=== PATIENT | male | born 1970 | race Caucasian/White ===

== ENCOUNTER 2018-01-08 12:22 | Emergency (ER) | payer BC ==
[~2018-01-08] VITALS: Ht 182.9 cm; Wt 96.2 kg
[2018-01-08 12:30] VITALS: BP_SYST 152
[2018-01-08] MEDS ORDERED: NACL 0.9% 1,000 ML IV ONE (13:15)
[2018-01-08 13:35] LABS: BILIRUBIN,URINE NEGATIVE (NEGATIVE); BLOOD, URINE NEGATIVE (NEGATIVE); CLARITY/URINE CLEAR (CLEAR); COLOR,URINE YELLOW (YELLOW); GLUCOSE,URINE NEGATIVE (NEGATIVE); KETONES,URINE NEGATIVE (NEGATIVE); LEUKOCYTE ESTERASE ,URINE NEGATIVE (NEGATIVE); NITRITE, URINE NEGATIVE (NEGATIVE); PROTEIN URINE 1+ (NEGATIVE); UROBILINOGEN,URINE 0.2 (0.2-1.0)
[2018-01-08 13:45] LABS: BACTERIA,URINE RARE /HPF (None Seen); MUCUS,URINE 1+ /LPF (None Seen); RBC,URINE 0-3 /HPF (0-3); WBC,URINE 0-3 /HPF (0-3)
[2018-01-08 13:45] LABS: CALCIUM 10.6 mg/dL (8.4-11.0); CREATININE 0.96 mg/dL (0.55-1.30); POTASSIUM 3.4 mmol/L (3.5-5.1)
[2018-01-08 13:46] LABS: BASOPHILS # (AUTO) 0.1 K/uL (0.0-0.2); BASOPHILS % (AUTO) 0.8 % (0.0-2.0); HEMATOCRIT 49.3 % (36-54); HEMOGLOBIN 16.9 g/dL (14.0-18.0); LYMPHOCYTES # (AUTO) 0.8 K/uL (1.0-5.5); LYMPHOCYTES % (AUTO) 6.6 % (20.5-51.5); MEAN CORPUSCULAR HEMOGLOBIN 33 pg (27-31); MEAN CORPUSCULAR HGB CONC 34 % (32-36); MEAN CORPUSCULAR VOLUME 95 fL (79.0-98.0); MONOCYTES # (AUTO) 0.8 K/uL (0.0-1.0); MONOCYTES % (AUTO) 6.7 % (1.7-9.3); NEUTROPHILS # (AUTO) 10.8 K/uL (1.8-7.7); NEUTROPHILS % (AUTO) 85.9 % (40.0-70.0); PLATELET COUNT (AUTO) 260 K/uL (130-430); RED BLOOD CELL COUNT(AUTO) 5.21 MIL/uL (4.2-6.2); RED CELL DISTRIBUTION WIDTH 12.1 % (9.0-15.0); WHITE BLOOD COUNT (AUTO) 12.5 K/uL (4.8-10.8)
[2018-01-08 13:53] LABS: ALBUMIN 4.6 g/dL (3.4-4.8); TOTAL BILIRUBIN 1.1 mg/dL (0.0-1.0)
[2018-01-08] MEDS ORDERED: ONDANSETRON HCL 4 MG/5 ML UDC PO ONE (14:15)
[2018-01-08] MEDS ORDERED: MORPHINE 4 MG/ML INJ. SYRINGE IVP ONE (14:15)
[2018-01-08 14:50] VITALS: BP_SYST 148
== END 2018-01-08 14:50 | disposition home or self-care (01) ==
LOC: SED 12:22
DX: K51.90 Ulcerative colitis, unspecified, without complications (principal); R03.0 Elevated blood-pressure reading, without diagnosis of hypertension; K59.00 Constipation, unspecified; Z90.49 Acquired absence of other specified parts of digestive tract
CPT/HCPCS: 36415; 74150; 80053; 81000; 83690; 85025; 96361; 96374; 99285; J2270; J7030; Q0162

== ENCOUNTER 2018-02-25 18:10 | Inpatient (IN) | payer BC ==
[~2018-02-25] VITALS: Ht 182.9 cm; Wt 95.8 kg
[2018-02-25 18:23] VITALS: BP_SYST 132
[2018-02-25 19:37] LABS: CALCIUM 9.4 mg/dL (8.4-11.0); CREATININE 0.8 mg/dL (0.55-1.30); POTASSIUM 3.6 mmol/L (3.5-5.1)
[2018-02-25 19:38] LABS: BASOPHILS # (AUTO) 0.1 K/uL (0.0-0.2); BASOPHILS % (AUTO) 1.3 % (0.0-2.0); EOSINOPHILS # (AUTO) 0.1 K/uL (0.0-0.4); EOSINOPHILS % (AUTO) 1.2 % (0.0-4.0); HEMATOCRIT 41.2 % (36-54); LYMPHOCYTES # (AUTO) 0.7 K/uL (1.0-5.5); LYMPHOCYTES % (AUTO) 16.9 % (20.5-51.5); MEAN CORPUSCULAR HEMOGLOBIN 32 pg (27-31); MEAN CORPUSCULAR HGB CONC 34 % (32-36); MEAN CORPUSCULAR VOLUME 95 fL (79.0-98.0); MONOCYTES # (AUTO) 0.7 K/uL (0.0-1.0); MONOCYTES % (AUTO) 16.4 % (1.7-9.3); NEUTROPHILS # (AUTO) 2.8 K/uL (1.8-7.7); NEUTROPHILS % (AUTO) 64.2 % (40.0-70.0); PLATELET COUNT (AUTO) 338 K/uL (130-430); RED BLOOD CELL COUNT(AUTO) 4.34 MIL/uL (4.2-6.2); RED CELL DISTRIBUTION WIDTH 13.6 % (9.0-15.0); WHITE BLOOD COUNT (AUTO) 4.4 K/uL (4.8-10.8)
[2018-02-25 19:41] LABS: ALBUMIN 3.5 g/dL (3.4-4.8)
[2018-02-25] MEDS ORDERED: NACL 0.9% 1,000 ML IV ONE (20:15)
[2018-02-25] MEDS ORDERED: IOHEXOL 100 ML IV ONE (20:38)
[2018-02-25] MEDS ORDERED: MESA0.37 PO (21:20)
[2018-02-25] MEDS ORDERED: PIPERACILLIN/TAZO 3.375 GM in NS 50 ML IV ONE (21:30)
[2018-02-25] MEDS ORDERED: PIPERACILLIN/TAZOBACTAM 3.375 GM/VIAL (ZOSYN) IV ONE (21:41)
[2018-02-25 22:56] VITALS: BP_SYST 123
[2018-02-25 23:30] VITALS: BP_SYST 116
[2018-02-26] MEDS ORDERED: ONDANSETRON HCL 4 MG/2 ML VIAL IVP PRN (03:45)
[2018-02-26] MEDS: D5LR 1,000 ML IV SCH ×2 (04:22→15:55)
[2018-02-26] MEDS ORDERED: AMPICILLIN SODIUM/SULBACTAM NA 1.5 GM VIAL ONE (05:51)
[2018-02-26] MEDS: AMPICILLIN SODIUM/SULBACTAM NA 1.5 GM in NS 50 ML IV SCH ×3 (06:07→17:54)
[2018-02-26 06:47] LABS: BASOPHILS # (AUTO) 0.1 K/uL (0.0-0.2); BASOPHILS % (AUTO) 1.6 % (0.0-2.0); EOSINOPHILS # (AUTO) 0.1 K/uL (0.0-0.4); EOSINOPHILS % (AUTO) 1.5 % (0.0-4.0); HEMATOCRIT 38.2 % (36-54); HEMOGLOBIN 13.3 g/dL (14.0-18.0); LYMPHOCYTES # (AUTO) 0.9 K/uL (1.0-5.5); LYMPHOCYTES % (AUTO) 19.4 % (20.5-51.5); MEAN CORPUSCULAR HEMOGLOBIN 33 pg (27-31); MEAN CORPUSCULAR HGB CONC 35 % (32-36); MEAN CORPUSCULAR VOLUME 95 fL (79.0-98.0); MONOCYTES # (AUTO) 0.6 K/uL (0.0-1.0); MONOCYTES % (AUTO) 13.7 % (1.7-9.3); NEUTROPHILS # (AUTO) 2.7 K/uL (1.8-7.7); NEUTROPHILS % (AUTO) 63.8 % (40.0-70.0); RED BLOOD CELL COUNT(AUTO) 4.04 MIL/uL (4.2-6.2); RED CELL DISTRIBUTION WIDTH 13.4 % (9.0-15.0); WHITE BLOOD COUNT (AUTO) 4.4 K/uL (4.8-10.8)
[2018-02-26 07:13] LABS: ALBUMIN 2.8 g/dL (3.4-4.8); CALCIUM 8.8 mg/dL (8.4-11.0); CREATININE 0.76 mg/dL (0.55-1.30); POTASSIUM 3.2 mmol/L (3.5-5.1); PROTHROMBIN TIME 10.3 SECS (9.5-12.5); TOTAL BILIRUBIN 12.4 mg/dL (0.0-1.0)
[2018-02-26 08:00] VITALS: BP_SYST 109
[2018-02-26] MEDS: FAMOTIDINE PF 20 MG/2 ML VIAL IVP SCH ×2 (08:48→22:04)
[2018-02-26 12:15] VITALS: BP_SYST 116
[2018-02-26 12:29] LABS: PLATELET COUNT (AUTO) 302 K/uL (130-430)
[2018-02-26] MEDS ORDERED: POTASSIUM CHLORIDE 20 MEQ TAB.PRT.SR PO ONE (15:00)
[2018-02-26] MEDS: DIPHENHYDRAMINE INJ 50 MG/ML VIAL IVP PRN ×2 (15:05→22:05)
[2018-02-26 16:11] VITALS: BP_SYST 111
[2018-02-26 19:50] VITALS: BP_SYST 119
[2018-02-27 00:10] VITALS: BP_SYST 107
[2018-02-27] MEDS: AMPICILLIN SODIUM/SULBACTAM NA 1.5 GM in NS 50 ML IV SCH ×4 (01:37→17:17)
[2018-02-27] MEDS: D5LR 1,000 ML IV SCH ×2 (01:37→12:45)
[2018-02-27 07:35] LABS: HEMATOCRIT 43.1 % (36-54); WHITE BLOOD COUNT (AUTO) 4.5 K/uL (4.8-10.8)
[2018-02-27 07:43] LABS: ALBUMIN 3.1 g/dL (3.4-4.8); CALCIUM 9.5 mg/dL (8.4-11.0); CREATININE 0.84 mg/dL (0.55-1.30); POTASSIUM 3.6 mmol/L (3.5-5.1); TOTAL BILIRUBIN 14.8 mg/dL (0.0-1.0)
[2018-02-27 07:45] LABS: PROTHROMBIN TIME 10.1 SECS (9.5-12.5)
[2018-02-27 07:50] LABS: HEMOGLOBIN 14.7 g/dL (14.0-18.0); MEAN CORPUSCULAR HEMOGLOBIN 33 pg (27-31); MEAN CORPUSCULAR HGB CONC 34 % (32-36); MEAN CORPUSCULAR VOLUME 97 fL (79.0-98.0); RED BLOOD CELL COUNT(AUTO) 4.46 MIL/uL (4.2-6.2); RED CELL DISTRIBUTION WIDTH 13.9 % (9.0-15.0)
[2018-02-27] MEDS: FAMOTIDINE PF 20 MG/2 ML VIAL IVP SCH ×2 (08:12→21:51)
[2018-02-27 08:17] VITALS: BP_SYST 113
[2018-02-27 09:18] LABS: BILIRUBIN,URINE 3+ (NEGATIVE); BLOOD, URINE NEGATIVE (NEGATIVE); CLARITY/URINE CLEAR (CLEAR); COLOR,URINE YELLOW (YELLOW); GLUCOSE,URINE NEGATIVE (NEGATIVE); KETONES,URINE NEGATIVE (NEGATIVE); LEUKOCYTE ESTERASE ,URINE NEGATIVE (NEGATIVE); NITRITE, URINE NEGATIVE (NEGATIVE); PH,URINE 7.5 (5.0-8.0); PROTEIN URINE NEGATIVE (NEGATIVE); UROBILINOGEN,URINE 0.2 (0.2-1.0)
[2018-02-27 10:20] LABS: RBC,URINE 0-3 /HPF (0-3); WBC,URINE 0-3 /HPF (0-3)
[2018-02-27 10:21] LABS: BACTERIA,URINE FEW /HPF (None Seen); MUCUS,URINE None Seen /LPF (None Seen); YEAST,URINE None Seen /HPF (None Seen)
[2018-02-27] MEDS ORDERED: IOHEXOL 50 ML IV ONE (13:19)
[2018-02-27 13:25] VITALS: BP_SYST 117
[2018-02-27 13:48] LABS: PLATELET COUNT (AUTO) 353 K/uL (130-430)
[2018-02-27 13:49] LABS: ATYPICAL LYMPHOCYTES % 0 % (0-0); BAND % (MANUAL) 1 % (0-6); BASOPHILS % (MANUAL) 2 % (0-2); EOSINOPHILS % (MANUAL) 3 % (0-7); LYMPHOCYTES % (MANUAL) 32 % (20-46); MONOCYTES % (MANUAL) 7 % (0-11)
[2018-02-27] MEDS ORDERED: fentaNYL CITRATE/PF 100 MCG/2 ML AMP IVP PRN ×2 (15:15)
[2018-02-27] MEDS ORDERED: ONDANSETRON HCL 4 MG/2 ML VIAL IVP PRN (15:15)
[2018-02-27 16:20] VITALS: BP_SYST 123
[2018-02-27] MEDS ORDERED: MORPHINE 4 MG/ML INJ. SYRINGE IVP PRN (16:45)
[2018-02-27] MEDS: MORPHINE 2 MG/ML INJ. SYRINGE IVP PRN ×2 (17:17→21:51)
[2018-02-27 17:18] VITALS: BP_SYST 123
[2018-02-27 20:00] VITALS: BP_SYST 115
[2018-02-28 00:32] VITALS: BP_SYST 113
[2018-02-28] MEDS: AMPICILLIN SODIUM/SULBACTAM NA 1.5 GM in NS 50 ML IV SCH ×4 (00:38→18:22)
[2018-02-28] MEDS: D5LR 1,000 ML IV SCH ×4 (01:42→23:13)
[2018-02-28 07:15] LABS: ALBUMIN 2.7 g/dL (3.4-4.8); BILIRUBIN,DIRECT 10.1 mg/dL (0.0-0.3)
[2018-02-28] MEDS: FAMOTIDINE PF 20 MG/2 ML VIAL IVP SCH ×2 (09:29→22:51)
[2018-02-28 09:43] VITALS: BP_SYST 118
[2018-02-28 12:45] VITALS: BP_SYST 121
[2018-02-28 16:35] VITALS: BP_SYST 119
[2018-02-28] MEDS: DIPHENHYDRAMINE INJ 50 MG/ML VIAL IVP PRN (18:22)
[2018-02-28 19:55] VITALS: BP_SYST 110
[2018-03-01] MEDS: AMPICILLIN SODIUM/SULBACTAM NA 1.5 GM in NS 50 ML IV SCH ×4 (00:03→17:29)
[2018-03-01 03:17] VITALS: BP_SYST 113
[2018-03-01 06:55] LABS: HEMATOCRIT 40.3 % (36-54); HEMOGLOBIN 13.6 g/dL (14.0-18.0); MEAN CORPUSCULAR HEMOGLOBIN 33 pg (27-31); MEAN CORPUSCULAR HGB CONC 34 % (32-36); MEAN CORPUSCULAR VOLUME 98 fL (79.0-98.0); PLATELET COUNT (AUTO) 292 K/uL (130-430); RED BLOOD CELL COUNT(AUTO) 4.13 MIL/uL (4.2-6.2); RED CELL DISTRIBUTION WIDTH 13.6 % (9.0-15.0); WHITE BLOOD COUNT (AUTO) 5.2 K/uL (4.8-10.8)
[2018-03-01 07:18] LABS: ALBUMIN 2.6 g/dL (3.4-4.8); BILIRUBIN,DIRECT 8.3 mg/dL (0.0-0.3); CALCIUM 9.2 mg/dL (8.4-11.0); CREATININE 0.93 mg/dL (0.55-1.30); TOTAL BILIRUBIN 10.9 mg/dL (0.0-1.0)
[2018-03-01 08:00] VITALS: BP_SYST 118
[2018-03-01 08:20] LABS: BASOPHILS % (MANUAL) 0 % (0-2); EOSINOPHILS % (MANUAL) 1 % (0-7); LYMPHOCYTES % (MANUAL) 23 % (20-46); MONOCYTES % (MANUAL) 6 % (0-11)
[2018-03-01] MEDS: FAMOTIDINE PF 20 MG/2 ML VIAL IVP SCH (08:37)
[2018-03-01] MEDS: D5LR 1,000 ML IV SCH (11:48)
[2018-03-01 12:05] VITALS: BP_SYST 131
[2018-03-01 16:00] VITALS: BP_SYST 121
[2018-03-01 19:44] VITALS: BP_SYST 127
== END 2018-03-01 20:31 | disposition short-term general hospital (02) | DRG 446 ==
LOC: SED 18:10 → STU 22:03 → SMU 02-26 18:55
PROVIDERS: ADMIT Internal Medicine; ATTEND Internal Medicine
PROC: 0FC98ZZ Extirpation of Matter from Common Bile Duct, Via Natural or Artificial Opening Endoscopic (ICD-10-PCS; 2018-02-27)
PROC: BF131ZZ Fluoroscopy of Gallbladder and Bile Ducts using Low Osmolar Contrast (ICD-10-PCS; 2018-02-27)
PROC: 0F798DZ Dilation of Common Bile Duct with Intraluminal Device, Via Natural or Artificial Opening Endoscopic (ICD-10-PCS; principal; 2018-02-27 14:00)
DX: K80.43 Calculus of bile duct with acute cholecystitis with obstruction (principal); E80.6 Other disorders of bilirubin metabolism; Z80.0 Family history of malignant neoplasm of digestive organs
CPT/HCPCS: 36415; 74181; 76000; 76705; 80048; 80053; 80076; 81000-TC; 83690-TC; 85007; 85025; 85027; 85610-TC; 87040-TC; 87081; 93005; 94010; 94760; 96365; 99291; C1769; J0295; J1200; J2270; J2543; J3490; J7030; J7120; Q9967